=== PATIENT | female | born 1985 | race Caucasian/White ===

== ENCOUNTER 2018-05-06 21:22 | Emergency (ER) | payer MEDICAID ==
[~2018-05-06] VITALS: Ht 167.6 cm; Wt 59.0 kg
[~2018-05-06 21:22] MED LIST: ADV50100 IH; DICY10CA88 PO; LEVA15HF4 IH; MONT10TA21 PO; NAPR-435 PO; ONDA4TAB6 PO; PHE12.5T PO; PHEN-786 PO; PROM25SU46 RC; QUET25TA PO
[2018-05-06 21:29] VITALS: BP 125/90
[2018-05-06] MEDS ORDERED: CEPH-572 PO (22:21)
== END 2018-05-06 22:38 | disposition home or self-care (01) ==
LOC: ER 21:22
DX: L03.011 Cellulitis of right finger (principal); G43.909 Migraine, unspecified, not intractable, without status migrainosus; J45.909 Unspecified asthma, uncomplicated; Z87.442 Personal history of urinary calculi; Z98.890 Other specified postprocedural states; Z98.51 Tubal ligation status; Z79.899 Other long term (current) drug therapy
CPT/HCPCS: 99283

== ENCOUNTER 2019-01-09 21:12 | Emergency (ER) | payer MEDICAID ==
[~2019-01-09] VITALS: Ht 167.6 cm; Wt 63.6 kg
[~2019-01-09 21:12] MED LIST changes: -PHE12.5T PO; +PROM12.512 PO
[2019-01-09] MEDS ORDERED: normal saline 1000ML IV soln IVB ONE (21:50)
[2019-01-09] MEDS ORDERED: morphine 4 MG/ML inj SYRINge IV PRN (21:50)
[2019-01-09] MEDS ORDERED: ondansetron/PF 4mg/2ml inj IV ONE (21:50)
[2019-01-09 21:51] LABS: BASOPHILS % (AUTO) 0.4 % (0-1); EOSINOPHILS # (AUTO) 0.1 X10'3 (0-0.9); EOSINOPHILS % (AUTO) 1.1 % (0-6); HEMATOCRIT 35.5 % (35.0-45.0); LYMPHOCYTES # (AUTO) 2.5 X10'3 (1.1-4.8); LYMPHOCYTES % (AUTO) 32.7 % (21-51); MEAN CORPUSCULAR HEMOGLOBIN 29.4 PG (27.0-31.0); MEAN CORPUSCULAR HGB CONC 33.9 g/dL (33.0-36.5); MEAN CORPUSCULAR VOLUME 86.8 FL (78-98); MEAN PLATELET VOLUME 9.3 FL (7.4-10.4); MONOCYTES # (AUTO) 0.8 X10'3 (0-0.9); NEUTROPHILS # (AUTO) 4.3 X10'3 (1.8-7.7); NEUTROPHILS % (AUTO) 55.8 % (42-75); PLATELET COUNT 235 X10'3 (140-440); WHITE BLOOD COUNT 7.8 X10'3 (4.5-11.0)
[2019-01-09 21:59] LABS: ALANINE AMINOTRANSFERASE 22 U/L (12-78); ALBUMIN 4.1 G/DL (3.4-5.0); ALBUMIN/GLOBULIN RATIO 1.2 (1.1-1.5); ALKALINE PHOSPHATASE 86 IU/L (46-116); ANION GAP 11 (8-16); ASPARTATE AMINO TRANSFERASE 23 U/L (10-37); BILIRUBIN,TOTAL 0.6 MG/DL (0.1-1.0); BLOOD UREA NITROGEN 18 MG/DL (7-18); BUN/CREATININE RATIO 18.8 (6.6-38.0); CALCIUM 8.7 MG/DL (8.5-10.1); CHLORIDE 104 MMOL/L (99-107); CREATININE 0.96 MG/DL (0.40-0.90); GLUCOSE 90 MG/DL (70-104); POTASSIUM 3.2 MMOL/L (3.5-5.1); SODIUM 139 MMOL/L (135-145); TOTAL CARBON DIOXIDE 23.8 MMOL/L (24-32); TOTAL PROTEIN 7.5 G/DL (6.4-8.2); eGFR 66 ML/MIN
[2019-01-09] MEDS ORDERED: iohexol 300mg/ml 100ml inj. ONE (22:17)
--- NOTE | 2019-01-10 00:10 | NUR ---
PATIENT WOKEN UP AND REMINDED THAT WE NEED A URINE SAMPLE . PT STATES SHE HAS BEEN TRYING TO GO WITHOUT SUCCESS . REMINDED PT THAT SHE HAD SOME FLUIDS AND SHE SHOULD BE ABLE TO PEE. SENT PATIENT TO THE BATHROOM FOR AN ATTEMPT TO GET A CLEAR CATCH SAMPLE ONCE INSTRUCTION HOW TO PREP FOR SAMPLE
[2019-01-10] MEDS ORDERED: ONDA4TAB6 PO (00:26)
[2019-01-10 00:42] VITALS: BP 113/69
--- NOTE | 2019-01-10 01:15 | NUR ---
patient stated she would like a taxi to [facility] . contacted the mission and they appproved her coming over early this am. a taxi was called for transportation. pt was dischrage and ambulated off the unit with steady gait, verbalized follow up appt and when to return to the er.
== END 2019-01-10 01:15 | disposition home or self-care (01) ==
LOC: ER 21:13
DX: A08.4 Viral intestinal infection, unspecified (principal); N84.0 Polyp of corpus uteri; R11.2 Nausea with vomiting, unspecified; G43.909 Migraine, unspecified, not intractable, without status migrainosus; J45.909 Unspecified asthma, uncomplicated; F17.200 Nicotine dependence, unspecified, uncomplicated; F15.90 Other stimulant use, unspecified, uncomplicated; Z79.899 Other long term (current) drug therapy
CPT/HCPCS: 36415; 74178; 80053; 85025; 85610; 96361; 96374; 96375; 99284; J2270; J2405; J7030; Q9967

== ENCOUNTER 2019-01-15 15:53 | Emergency (ER) | payer MEDICAID ==
[~2019-01-15] VITALS: Ht 167.6 cm; Wt 62.0 kg
[2019-01-15 16:43] LABS: BASOPHILS % (AUTO) 0.4 % (0-1); EOSINOPHILS # (AUTO) 0.1 X10'3 (0-0.9); EOSINOPHILS % (AUTO) 1.7 % (0-6); HEMATOCRIT 35.3 % (35.0-45.0); HEMOGLOBIN 11.6 g/dl (12.0-16.0); LYMPHOCYTES # (AUTO) 1.9 X10'3 (1.1-4.8); LYMPHOCYTES % (AUTO) 24.1 % (21-51); MEAN CORPUSCULAR HEMOGLOBIN 29.5 PG (27.0-31.0); MEAN CORPUSCULAR VOLUME 89.3 FL (78-98); MEAN PLATELET VOLUME 9.6 FL (7.4-10.4); MONOCYTES # (AUTO) 0.4 X10'3 (0-0.9); MONOCYTES % (AUTO) 5.4 % (2-12); NEUTROPHILS # (AUTO) 5.5 X10'3 (1.8-7.7); NEUTROPHILS % (AUTO) 68.4 % (42-75); PLATELET COUNT 239 X10'3 (140-440); RED BLOOD COUNT 3.95 X10'6 (4.20-5.60); RED CELL DISTRIBUTION WIDTH 15.5 % (11.5-14.5); WHITE BLOOD COUNT 8.1 X10'3 (4.5-11.0)
[2019-01-15 16:56] LABS: ALANINE AMINOTRANSFERASE 20 U/L (12-78); ALBUMIN 3.7 G/DL (3.4-5.0); ALBUMIN/GLOBULIN RATIO 1.1 (1.1-1.5); ALKALINE PHOSPHATASE 86 IU/L (46-116); ANION GAP 8 (8-16); ASPARTATE AMINO TRANSFERASE 16 U/L (10-37); BILIRUBIN,TOTAL 0.2 MG/DL (0.1-1.0); BLOOD UREA NITROGEN 10 MG/DL (7-18); BUN/CREATININE RATIO 11.9 (6.6-38.0); CALCIUM 8.5 MG/DL (8.5-10.1); CHLORIDE 107 MMOL/L (99-107); CREATININE 0.84 MG/DL (0.40-0.90); ETHANOL < 0.010 GM/DL (0.0-0.010); GLUCOSE 86 MG/DL (70-104); POTASSIUM 3.8 MMOL/L (3.5-5.1); SODIUM 142 MMOL/L (135-145); TOTAL CARBON DIOXIDE 27.1 MMOL/L (24-32); eGFR 77 ML/MIN
[2019-01-15 16:57] LABS: URINE HCG NEGATIVE (NEG)
--- NOTE | 2019-01-15 17:00 | NUR ---
Received pt straight back from triage at 1615. Pt BIB bilingual patient support caseworker from the rehab program at the [facility]. CW states pt was fine on Tuesday and now she is very childlike and paranoid, "I feel scared" r/t random things. Pt needing reassurrance. Pt claims no psych history; though, pt states she cut her hair 2 months ago because their was a snake in there. Pt evaluated by Elgin BECKHAM who wishes Dr. Hampton to do a psych consult.
[2019-01-15 17:02] LABS: URINE AMPHETAMINE SCREEN NEGATIVE (Neg); URINE BARBITUATE SCREEN NEGATIVE (Neg); URINE BENZODIAZEPINES SCREEN NEGATIVE (Neg); URINE CANNABINOID SCREEN NEGATIVE (Neg); URINE COCAINE SCREEN NEGATIVE (Neg); URINE METHADONE SCREEN NEGATIVE (Neg); URINE OPIATE SCREEN NEGATIVE (Neg); URINE PHENCYCLIDINE SCREEN NEGATIVE (Neg)
[2019-01-15] MEDS ORDERED: risperiDONE 0.5mg tablet PO ONE (17:40)
[2019-01-15] MEDS ORDERED: BACL10TA PO (17:52)
[2019-01-15] MEDS ORDERED: GABA-532 PO (17:52)
[2019-01-15] MEDS ORDERED: ibuprofen 200mg tablet PO PRN (18:20)
--- NOTE | 2019-01-15 18:26 | NUR ---
Service Engineer ([facility]) contact info: Nohemi Huddleston: [phone] - she'll be back tomorrow [facility] [phone] [place] [phone]
[2019-01-15] MEDS ORDERED: nicotine 14mg patch - 24hr TD SCH (19:00)
--- NOTE | 2019-01-15 20:19 | NUR ---
Patient is being interviewed by Carlo Nieto [facility] RN. This patient is demonstrating rapid speech, flight of ideas, paranoia, she hears voices.. The patient is oriented to person, date, time, she does not know the capitol of [place] nor the President of the [facility]. Patient reported to be off alcohol for around six days? This patient denies a psycological history. Patient denies S/I or H/I. Patient exhibits bizarre behavior, she states "I don't like water bottle babies, I don't know what water bottle babies are, but I don't like them."
[2019-01-15] MEDS ORDERED: OLANZAPINE 5 MG TABLET PO ONE (20:55)
[2019-01-15] MEDS ORDERED: olanzapine 10mg tablet PO SCH (21:45)
[2019-01-15] MEDS ORDERED: olanzapine 10mg tablet PO ONE (21:45)
--- NOTE | 2019-01-15 22:08 | NUR ---
This patient is still awake. Per TO from Dr. Hampton the Zyprexa 10 mg is now repeated.
--- NOTE | 2019-01-15 22:11 | NUR ---
This patient is sitting up in bed laughing. She tells this journalists and other writers she is laughing about a childhood event but she can't remember what it is? The patient has poor eye contace. She is eating a sandwich. She is medication compliant.
--- NOTE | 2019-01-16 00:17 | NUR ---
Coby from [facility] called for a nurse to nurse report on this patient. It was given. A copy of the medical clearance from the ED provider was requested and faxed. A TSH and a UA were also requested and they have been ordered.
[2019-01-16 00:27] LABS: CLARITY,URINE CLEAR (Clear); COLOR,URINE YELLOW (Yellow); GLUCOSE, URINE NEGATIVE (Neg); KETONES,URINE NEGATIVE (Neg); LEUKOCYTE ESTERASE ,URINE NEGATIVE (Neg); NITRITES, URINE NEGATIVE (Neg); OCCULT BLOOD,URINE LARGE (Neg); PROTEIN,URINE NEGATIVE (Neg); UROBILINOGEN,URINE 0.2 E.U/dL (0.2-1.0)
[2019-01-16 00:29] LABS: UA COLLECTION TYPE CLN CATCH MIDSTREAM
[2019-01-16 00:32] LABS: BACTERIA,URINE 1+ /HPF (Neg); RBC,URINE 0-2 /HPF (0-2); SQUAMOUS EPITHELIAL CELL,UR MANY /LPF (FEW); WBC,URINE NONE SEEN /HPF (0-4)
--- NOTE | 2019-01-16 01:19 | NUR ---
Patient is moved to bed 23 in [place]. The HOB is raised to 45 degrees for patient safety in case of emesis. The patient is sleeping quietly at this time. Patients bed is in clear view of the nursing station. Q15 minute rounding is being done for patient safety. This patient is not cooperating with staff interview. She will be allowed to sleep. Patient is not in restraints at this time.
--- NOTE | 2019-01-16 06:07 | NUR ---
Patients UA and TSH have been completed and faxed to [facility] in [place]. It is probable that the patient will be accepted there. A lilely admit time would be this afternoon.
[2019-01-16 06:43] VITALS: BP 112/68
--- NOTE | 2019-01-16 07:00 | NUR ---
Received pt asleep in bed in no apparent distress.
[2019-01-16] MEDS ORDERED: nicotine 14mg patch - 24hr TD SCH (08:00)
[2019-01-16] MEDS ORDERED: risperiDONE 0.5mg tablet PO SCH (08:00)
--- NOTE | 2019-01-16 09:00 | NUR ---
Pt awoke for breakfast. Pt calm and cooperative.
--- NOTE | 2019-01-16 11:00 | NUR ---
Pt resting calmly in bed, no complaints.
--- NOTE | 2019-01-16 13:00 | NUR ---
Pt continues to rest quietly in bed without complaints.
--- NOTE | 2019-01-16 15:24 | NUR ---
Pt laying in bed without complaints. Pt told she was going to [facility], she had some questions, which were answered. Pt seemed a little upset, but stayed in control.
== END 2019-01-16 15:30 ==
LOC: ER 15:54
DX: R45.851 Suicidal ideations (principal); G43.909 Migraine, unspecified, not intractable, without status migrainosus; J45.909 Unspecified asthma, uncomplicated; F15.90 Other stimulant use, unspecified, uncomplicated; Z87.442 Personal history of urinary calculi; Z98.890 Other specified postprocedural states; Z98.51 Tubal ligation status; Z79.899 Other long term (current) drug therapy
CPT/HCPCS: 36415; 80053; 80305; 80320; 81001; 81025; 84443; 85025; 99285